=== PATIENT | male | born 1955 | race Caucasian/White ===

== ENCOUNTER 2025-05-15 13:57 | Emergency (ER) | payer BC, SELFPAY ==
[2025-05-15] VITALS (16 sets, daily range): BP systolic 114–173; BP diastolic 77–107
--- NOTE | 2025-05-15 14:52 | ED.GENMED ---
History of Present Illness
<Hugh Bowen PA-C - Last Filed: 05/15/25 18:43>
General
Chief Complaint: Fall
Source: patient
Time Seen by Provider: 05/15/25 14:41
History of Present Illness
History of Present Illness:
69-year-old male with past medical history of hypertension [id number] diabetes presenting to the emergency department from urgent care after he slipped and fell on ice this morning striking the back of his head on the ground, patient with
a hematoma to the back of the head as well as a current frontal headache, vomited twice at home and once on arrival to the ER room. Patient denies any use of anticoagulants or antiplatelet medications. Patient took 2 Advil prior to arrival
Past History
<Hugh Bowen PA-C - Last Filed: 05/15/25 18:43>
Past History
ED Past Medical History: HTN and NIDDM
ED Past Surgical History: Orthopedic
Social History
Tobacco: Non-smoker
Alcohol: Occasional
Drug: None
Personal:
Living: with family
Review of Systems
<Hugh Bowen PA-C - Last Filed: 05/15/25 18:43>
Review of Systems
All Other Systems: ROS reviewed and negative except as documented in HPI and ROS
Phy Exam
<Hugh Bowen PA-C - Last Filed: 05/15/25 18:43>
Physical Exam
Physical Exam:
GENERAL: Alert , in no apparent distress
HEAD: Normocephalic atraumatic
EYE: clear conjunctiva
NECK: Supple
ENT: o/p clr, mmm. ecchymosis to right superomedial orbit
CARDIAC: Regular rate and rhythm .
LUNGS: Clear breath sounds bilaterally, no acute respiratory distress, no wheezes/rales/rhonchi
ABDOMEN: Soft, without focal tenderness, no r/g, no cvat
NEUROLOGICAL: Alert and oriented, no focal neuro deficits
SKIN: Warm and dry, skin intact.
MUSCULOSKELETAL: No edema, well perfused.
PSYCH: Normal and appropriate interaction.
Scores
<Hugh Bowen PA-C - Last Filed: 05/15/25 18:43>
Heart Failure Risk
Heart Failure Risk Score: Not Applicable
Heart Score for Chest Pain Patients
STEMI patient?: Not applicable
Withdrawal Assessment of Alcohol
Withdrawal Assessment Completed?: Not applicable
Course
<Hugh Bowen PA-C - Last Filed: 05/15/25 18:43>
Orders/Labs/Results
Orders:
Orders
05/15/25 14:10
CT Cervical Spine W/o Iv Contr Urgent
Comment:
Reason For Exam: fall
CT Head W/o Iv Contrast Urgent
Comment:
Reason For Exam: fall
05/15/25 14:51
Ondansetron Injectable [Zofran] 4 mg IV NOW STA
05/15/25 14:54
Complete Blood Count/With Diff Urgent
Comprehensive Metabolic Panel Urgent
PTT Urgent
Prothrombin Time Urgent
05/15/25 15:00
Nicardipine 40 mg/200 ml [Cardene] 40 mg in 200 ml IV PER PROTOCOL
Initial dose in mg/hr, then titrate:: 5
Titrate to keep:: SBP 130 - 150 mmHg
Titrate by mg/hr:: 2.5 mg/hr
Frequency of titrations (minutes):: 5-15 minutes
Maximum dose in mg/hr:: 15
Begin to taper infusion when:: Remained at goal for 2hrs
Taper by mg/hr:: 2.5 mg/hr
Frequency of taper (minutes) if patient maintains goal:: every 15-30 minutes
Taper to off?: Yes
If infusion off & no longer maintaining goal:: Contact Provider
05/15/25 15:01
EKG [Electrocardiogram (*1)] Urgent
Reason for Study: Tachycardia
EKG- Treatment ONCE
05/15/25 15:16
Morphine Sulfate 2 mg .ROUTE .STK-MED ONE
05/15/25 15:17
Morphine Sulfate 2 mg IV NOW STA
Abnormal Lab Results
05/15/25
14:54
WBC 14.5 H 10^3/uL
(4.8-10.8)
Hct 54.0 H %
(39.0-52.0)
MCHC 32.4 L g/dL
(33.0-37.0)
Abs Immat Gran (auto) 0.1 H 10^3/uL
(0-0.05)
Absolute Neuts (auto) 12.5 H 10^3/uL
(1.4-6.5)
Neutrophils % 86.4 H %
(42.2-75.2)
Lymphocytes % 10.1 L %
(20.5-51.1)
BUN 25 H mg/dl
(9-20)
Glucose 262 H mg/dl
(70-99)
05/15/25 14:54
05/15/25 14:54
Vital Signs
Initial and Last Documented VS:
Initial Vital Signs
Temp Pulse Resp BP Pulse Ox
98.0 F 118 18 167/101 95
05/15/25 14:06 05/15/25 14:06 05/15/25 14:06 05/15/25 14:06 05/15/25 14:06
Last Documented Vital Signs
Temp Pulse Resp BP Pulse Ox
98.0 F 113 15 120/82 95
05/15/25 14:06 05/15/25 18:00 05/15/25 18:00 05/15/25 18:00 05/15/25 18:00
<Darian Mckinnon MD - Last Filed: 05/15/25 15:08>
Orders/Labs/Results
Orders:
Orders
05/15/25 14:10
CT Cervical Spine W/o Iv Contr Urgent
Comment:
Reason For Exam: fall
CT Head W/o Iv Contrast Urgent
Comment:
Reason For Exam: fall
05/15/25 14:51
Ondansetron Injectable [Zofran] 4 mg IV NOW STA
05/15/25 14:54
Complete Blood Count/With Diff Urgent
Comprehensive Metabolic Panel Urgent
PTT Urgent
Prothrombin Time Urgent
05/15/25 15:00
Nicardipine 40 mg/200 ml [Cardene] 40 mg in 200 ml IV PER PROTOCOL
Initial dose in mg/hr, then titrate:: 5
Titrate to keep:: SBP 130 - 150 mmHg
Titrate by mg/hr:: 2.5 mg/hr
Frequency of titrations (minutes):: 5-15 minutes
Maximum dose in mg/hr:: 15
Begin to taper infusion when:: Remained at goal for 2hrs
Taper by mg/hr:: 2.5 mg/hr
Frequency of taper (minutes) if patient maintains goal:: every 15-30 minutes
Taper to off?: Yes
If infusion off & no longer maintaining goal:: Contact Provider
05/15/25 15:01
EKG [Electrocardiogram (*1)] Urgent
Reason for Study: Tachycardia
EKG- Treatment ONCE
05/15/25 15:16
Morphine Sulfate 2 mg .ROUTE .STK-MED ONE
05/15/25 15:17
Morphine Sulfate 2 mg IV NOW STA
Abnormal Lab Results
05/15/25
14:54
WBC 14.5 H 10^3/uL
(4.8-10.8)
Hct 54.0 H %
(39.0-52.0)
MCHC 32.4 L g/dL
(33.0-37.0)
Abs Immat Gran (auto) 0.1 H 10^3/uL
(0-0.05)
Absolute Neuts (auto) 12.5 H 10^3/uL
(1.4-6.5)
Neutrophils % 86.4 H %
(42.2-75.2)
Lymphocytes % 10.1 L %
(20.5-51.1)
BUN 25 H mg/dl
(9-20)
Glucose 262 H mg/dl
(70-99)
05/15/25 14:54
05/15/25 14:54
Vital Signs
Initial and Last Documented VS:
Initial Vital Signs
Temp Pulse Resp BP Pulse Ox
98.0 F 118 18 167/101 95
05/15/25 14:06 05/15/25 14:06 05/15/25 14:06 05/15/25 14:06 05/15/25 14:06
Last Documented Vital Signs
Temp Pulse Resp BP Pulse Ox
98.0 F 113 15 120/82 95
05/15/25 14:06 05/15/25 18:00 05/15/25 18:00 05/15/25 18:00 05/15/25 18:00
<Hugh Bowen PA-C - Last Filed: 05/15/25 18:43>
MDM/Problems Addressed
Differential Diagnosis Includes:
Intracranial bleeding
Calvarial fracture
Concussion
MDM/Problems Addressed:
69-year-old male presenting to the emergency department for evaluation from urgent care after slip and fall in ice around 930 this morning, since that time patient complaining of headache and vomiting x 2, third episode of vomiting shortly after
arriving into the emergency department from CT scan. I reviewed the CT imaging prior to seeing the patient as patient was brought to CT from the waiting room and the CT appears to show a significant traumatic subarachnoid/subdural hemorrhage.
[facility] text notification sent to radiology for review. Dr. Mckinnon discussing with on-call neurosurgeon, Dr. Mack
<Hugh Bowen PA-C - Last Filed: 05/15/25 18:43>
*Radiology
Radiology exam reviewed: preliminary read by ED provider (Traumatic subarachnoid/subdural hemorrhage)
*Pulse Oximetry
SaO2: 95
Oxygen Mode of Delivery: Room air
Patient hypoxic: no
*Critical Care Note
Total Time (30-74mins, 75-104mins- exclusive of procedures): 45
comment:
Critical care statement: A total of 45 minutes of critical care time was provided for this patient. This includes management of unstable vital signs, evaluation of the patient at bedside, reviewing the patient's pertinent medical records, discussion
with consultants, review of old EKGs and review of pertinent medical records. This time with separate from time utilized to perform the aforementioned documented procedures
<Hugh Bowen PA-C - Last Filed: 05/15/25 18:43>
Patient Management
Discussion with other providers: Rooming House Operator and Radiologist
Escalation/DeEscalation of care consider admission/obs:
Case discussed with radiologist, there is significant traumatic subarachnoid and subdural hemorrhage. Dr. Mckinnon discussing case with on-call neurosurgeon from [facility], Dr. Mack. Patient accepted in transfer to trauma service with
neurosurgery team in consult. Patient hypertensive on arrival so a nicardipine drip was initiated, vomited shortly after getting back into the ER room, treated with 4 mg Zofran.
ED Attending Note
<Hugh Bowen PA-C - Last Filed: 05/15/25 18:43>
-
Portions of this chart may have been created with voice recognition software.� Occasional wrong word or��sound alike� substitutions may have occurred due to the inherent limitations of voice recognition software.
<Darian Mckinnon MD - Last Filed: 05/15/25 15:08>
ED Attending Note
Patient seen and examined by attending physician: Yes
ED Attending Note:
I have seen and evaluated the patient with a [id number] encounter. I have spoken to the advance practicer provider and involved in the medical history, the physical exam, medical decision making.
Evaluation and management service: agree unless noted differently below.
Results interpretation: agree unless noted differently below.
Focused HPI: 69-year-old male with a past medical history of hypertension, diabetes who presents to the emergency room for evaluation after slip and fall with head strike. Patient was walking out of his house slipped on ice and fell backwards to
the back of his head on the ground. He says he did not pass out but has had headache and 2 episodes of vomiting since. He denies any neck pain to me although reported some neck pain in triage. Denies any back pain or rib pain. He denies any
abdominal pain. He denies any pain in the extremities. Denies any numbness or weakness in extremities. He is not on blood thinners
Physical exam: Awake and alert, oriented x 3 with GCS of 15. He has some mild ecchymosis in the right periorbital region. He has an occipital scalp hematoma. No cervical spine tenderness. No signs of trauma to the back or flank and no tenderness
of the thoracic or lumbar spine. No chest wall tenderness. No abdominal tenderness. No tenderness in extremities moves extremities freely without pain. Cranial nerves are intact and motor and sensory intact in all extremities.
Medical Decision Makin-year-old male presents for evaluation after slip and fall with head strike. Vitals and exam are as above. He was sent for a CT head and cervical spine�CT head concerning for subarachnoid hemorrhage. No cervical spine
fracture noted. No other serious injuries. He is hypertensive will aggressively control blood pressure. Discussed case with neurosurgery will plan to transfer to [place] for trauma admission. PA discussed with trauma team for transfer.
Discharge Plan
Departure
Patient Disposition: Acute Care Hospital
Date of Disposition: 05/15/25
Time of Disposition: 14:58
Patient with high blood pressure during this ER visit?: Yes
Discharge Problem:
Traumatic subdural hemorrhage, Traumatic subarachnoid hemorrhage, Traumatic cerebral parenchymal hemorrhage
Hospital Transfer
Other hospital: [facility]
I certify that the patient requires transfer: Yes
Discussed case with accepting physician: Dr. Cevallos
Reason for transfer: higher level of care, availability of service and specialties available
Interventions
Interventions:
*General Assessment Last Done: 05/15/25 14:06
*Neglect/Abuse Screening Last Done: 05/15/25 14:59
*ED COVID-19 Vaccine History Last Done: 05/15/25 14:06
*ED Influenza Vaccine History Last Done: 05/15/25 14:06
[facility] Fall Risk Assessment Tool Last Done: 05/15/25 18:21
*Risk Screen - Suicide (C-SSRS) Last Done: 05/15/25 14:06
*Nursing Disposition Last Done: 05/15/25 18:21
ED-Musculoskeletal Assessment Last Done: 05/15/25 14:59
ED- Neurological Assessment Last Done: 05/15/25 15:24
ED-Skin Assessment Last Done: 05/15/25 14:59
Discharge Date and Time
Discharge Date/Time: 05/15/25 18:22
Print Language: CITIZEN OF [place]
[2025-05-15] MEDS: ZOFRAN 4 MG IV (15:07)
[2025-05-15 15:11] LABS: Hematocrit 54.0 % (39.0-52.0); Hemoglobin 17.5 g/dL (13.0-18.0); Mean Corp Hgb Conc. 32.4 g/dL (33.0-37.0); Mean Corpuscular Volume 92.5 fL (80.0-94.0); Nucleated Red Blood Cells % 0 % (-); Platelet Count 231 10^3/uL (130-400); Red Cell Dist. Width 12.8 % (11.5-14.5)
[2025-05-15] MEDS: MORPHINE SULFATE 2 MG IV (15:18)
[2025-05-15 15:21] LABS: APTT 24.2 Sec (23.4-35.0); INR 0.97; PT 13.0 Sec (11.4-14.6)
[2025-05-15 15:31] LABS: ALT (SGPT) 25 U/L (0-50); AST (SGOT) 26 U/L (17-59); Albumin 4.5 g/dl (3.5-5.0); Alkaline Phosphatase 126 U/L (38-126); Blood Urea Nitrogen 25 mg/dl (9-20); Calcium 9.7 mg/dl (8.4-10.2); Carbon Dioxide 23 mmol/L (22-30); Chloride 98 mmol/L (98-107); Glucose 262 mg/dl (70-99); Potassium 4.4 mmol/L (3.5-5.1); Sodium 138 mmol/L (135-145); Total Protein 8.1 g/dl (6.3-8.2); eGFR > 60.00
== END 2025-05-15 18:22 | disposition short-term general hospital (02) ==
LOC: EMR 13:57
PROVIDERS: Physician Assistant Medical; EMERGENCY PHYSICIAN Emergency Medicine; FAMILY PHYSICIAN Family Medicine
DX: S06.5X0A Traumatic subdural hemorrhage without loss of consciousness, initial encounter (principal); S06.6X0A Traumatic subarachnoid hemorrhage without loss of consciousness, initial encounter; S06.340A Traumatic hemorrhage of right cerebrum without loss of consciousness, initial encounter; W00.0XXA Fall on same level due to ice and snow, initial encounter; Y92.009 Unspecified place in unspecified non-institutional (private) residence as the place of occurrence of the external cause; E11.9 Type 2 diabetes mellitus without complications; I10 Essential (primary) hypertension; Z79.84 Long term (current) use of oral hypoglycemic drugs
CPT/HCPCS: 99291; 96374; 96375; 70450; 72125; 80053; 85025; 85610; 85730; 93005